=== PATIENT | male | born 1960 | race Caucasian/White ===

== ENCOUNTER → 2020-05-18 09:23 | Outpatient (BNVA) | payer BC, SELFPAY | PROVIDERS: Family Provider Internal Medicine; Visit Provider Nurse Practitioner Family | DX: K50.90 Crohn's disease, unspecified, without complications (principal); M10.9 Gout, unspecified; D51.8 Other vitamin B12 deficiency anemias; E78.2 Mixed hyperlipidemia; N40.0 Benign prostatic hyperplasia without lower urinary tract symptoms | CPT/HCPCS: 80053; 80061; 81003; 82306; 82607; 82746; 83036; 83721; 83735; 84153; 84443; 84446; 84550; 84630; 85025 ==

== ENCOUNTER → 2020-08-22 08:42 | Outpatient (BNVA) | payer BC, SELFPAY | PROVIDERS: Family Provider Internal Medicine; Visit Provider Nurse Practitioner Family | DX: K50.90 Crohn's disease, unspecified, without complications (principal); D51.8 Other vitamin B12 deficiency anemias; M10.9 Gout, unspecified; E78.2 Mixed hyperlipidemia; E55.9 Vitamin D deficiency, unspecified | CPT/HCPCS: 80053; 80061; 81003; 82306; 82607; 82746; 84550; 85025 ==

== ENCOUNTER → 2021-02-20 09:32 | Outpatient (BNVA) | payer BC, SELFPAY | PROVIDERS: Family Provider Internal Medicine; Visit Provider Nurse Practitioner Family | DX: M1A.09X0 Idiopathic chronic gout, multiple sites, without tophus (tophi) (principal); K50.90 Crohn's disease, unspecified, without complications; E55.9 Vitamin D deficiency, unspecified; D51.8 Other vitamin B12 deficiency anemias; N40.0 Benign prostatic hyperplasia without lower urinary tract symptoms; E78.2 Mixed hyperlipidemia | CPT/HCPCS: 80053; 80061; 81003; 82306; 83735; 83921; 84100; 84550; 85025; G0103 ==

== ENCOUNTER → 2021-02-24 09:02 | Outpatient (BNVA) | payer BC, SELFPAY | PROVIDERS: Family Provider Internal Medicine; PCP Nurse Practitioner Family; Visit Provider Nurse Practitioner Family | DX: K50.90 Crohn's disease, unspecified, without complications (principal); Z79.899 Other long term (current) drug therapy; R94.4 Abnormal results of kidney function studies | CPT/HCPCS: 36415; 82043; 83036; 84443; 84630 ==

== ENCOUNTER 2022-06-29 11:08 | Outpatient (CLI) | payer OTHER, SELFPAY ==
--- NOTE | 2022-06-29 11:22 | XR_ITS ---
WS: [id number] XR shoulder RT min 2V* [id number] REASON FOR EXAM: R SHOULDER JOINT PAIN FINDINGS: Significant narrowing of the acromioclavicular joint with subchondral sclerosis and osteophytosis. Mild narrowing of the glenohumeral joint with mild osteophytosis of the humeral head. Inhomogeneous sclerotic density in the medial humeral surgical neck. Benign in appearance. No soft tissue abnormality. XR/XR shoulder RT min 2V* [id number] IMPRESSION: Moderate osteoarthritis in the acromioclavicular joint. Mild osteoarthritis in the glenohumeral joint. Moderate rotator cuff tendon arthropathy. Proximal humeral lesion, possibly enchondroma. Other consideration would be par tially ossified lipoma. Unlikely this abnormality is the cause of pain.
--- NOTE | 2022-06-29 11:22 | XR_ITS ---
WS: [id number] XR shoulder LT min 2V* [id number] REASON FOR EXAM: LEFT SHOULDER JOINT PAIN FINDINGS: Moderate narrowing of the acromioclavicular joint with subchondral sclerosis and osteophytosis. Moderate narrowing of the glenohumeral joint with subchondral sclerosis in the glenoid and large oste ophyte of the humeral head. Mild subchondral sclerosis in the greater tuberosity of the humerus. XR/XR shoulder LT min 2V* [id number] IMPRESSION: Moderate osteoarthritis in the acromioclavicular joint. Significant osteoarthritis in the glenohumeral joint. Mild rotator cuff tendon arthropathy.
== END 2022-06-29 11:09 | disposition home or self-care (01) ==
PROVIDERS: PCP Internal Medicine; Visit Provider Nurse Practitioner Family
DX: M19.011 Primary osteoarthritis, right shoulder (principal); M19.012 Primary osteoarthritis, left shoulder
CPT/HCPCS: 73030

== ENCOUNTER → 2023-11-19 08:25 | Outpatient (BNVA) | payer OTHER, SELFPAY | PROVIDERS: PCP Nurse Practitioner Family; Visit Provider Nurse Practitioner Family | DX: Z79.899 Other long term (current) drug therapy (principal); E78.2 Mixed hyperlipidemia; D51.8 Other vitamin B12 deficiency anemias; R53.83 Other fatigue; Z12.5 Encounter for screening for malignant neoplasm of prostate | CPT/HCPCS: 80053; 80061; 81003; 82306; 82607; 83036; 83735; 84100; 84443; 85025; G0103 ==

== ENCOUNTER → 2023-11-20 11:35 | Outpatient (BNVA) | payer OTHER, SELFPAY | PROVIDERS: PCP Nurse Practitioner Family; Visit Provider Nurse Practitioner Family | DX: Z79.899 Other long term (current) drug therapy (principal); E78.2 Mixed hyperlipidemia; D51.8 Other vitamin B12 deficiency anemias; R53.83 Other fatigue; Z12.5 Encounter for screening for malignant neoplasm of prostate; E83.51 Hypocalcemia | CPT/HCPCS: 82310; 83970 ==

== ENCOUNTER → 2023-11-22 08:26 | Outpatient (BNVA) | payer OTHER, SELFPAY | PROVIDERS: PCP Nurse Practitioner Family; Visit Provider Nurse Practitioner Family | DX: E83.51 Hypocalcemia (principal) | CPT/HCPCS: 82310; 83970 ==

== ENCOUNTER → 2024-07-28 08:29 | Outpatient (BNVA) | payer OTHER, SELFPAY | PROVIDERS: PCP Nurse Practitioner Family; Visit Provider Nurse Practitioner Family | DX: E78.2 Mixed hyperlipidemia (principal); K50.90 Crohn's disease, unspecified, without complications; R94.4 Abnormal results of kidney function studies; N40.0 Benign prostatic hyperplasia without lower urinary tract symptoms | CPT/HCPCS: 80053; 80061; 82607; 82746; 85025; G0103 ==

== ENCOUNTER → 2025-01-11 09:04 | Outpatient (BNVA) | payer OTHER, SELFPAY | PROVIDERS: PCP Nurse Practitioner Family; Visit Provider Nurse Practitioner Family | DX: E78.2 Mixed hyperlipidemia (principal); E55.9 Vitamin D deficiency, unspecified; K50.90 Crohn's disease, unspecified, without complications | CPT/HCPCS: 80053; 80061; 81003; 82306; 82728; 83036; 83550; 84443; 85025; 86140 ==

== ENCOUNTER → 2025-03-01 08:46 | Outpatient (BNVA) | payer OTHER, SELFPAY | PROVIDERS: PCP Nurse Practitioner Family; Visit Provider Nurse Practitioner Family | DX: K50.90 Crohn's disease, unspecified, without complications (principal) | CPT/HCPCS: 80053; 82607; 82746 ==